=== PATIENT | female | born 2000 | race Caucasian/White ===

== ENCOUNTER 2018-01-13 20:18 | Emergency (ER) | payer OTHER ==
[~2018-01-13] VITALS: Ht 172.7 cm; Wt 110.0 kg
[2018-01-13 20:44] VITALS: BP 147/82
[2018-01-13] MEDS ORDERED: ACETAMINOPHEN 500 MG TABLET PO ONE (21:45)
[2018-01-13] MEDS ORDERED: KETOROLAC TROMETHAMINE 30 MG/ML VIAL IM ONE (21:45)
[2018-01-13] MEDS ORDERED: OxyCODONE HCL 5 MG IR TABLET PO ONE (22:45)
== END 2018-01-13 23:30 | disposition home or self-care (01) ==
LOC: EMS 20:19
DX: M25.511 Pain in right shoulder (principal); R03.0 Elevated blood-pressure reading, without diagnosis of hypertension; Z88.0 Allergy status to penicillin
CPT/HCPCS: 29105; 73030; 73080; 81025; 96372; 99284; J1885